=== PATIENT | male | born 1980 | race Caucasian/White ===

== ENCOUNTER 2017-02-28 11:37 | Emergency (ER) | payer MEDICAID, OTHER ==
[~2017-02-28] VITALS: Ht 167.6 cm; Wt 100.0 kg
[2017-02-28 11:39] VITALS: Ht 167.6 cm; Wt 100.0 kg
[2017-02-28] MEDS ORDERED: LIDOCAINE 1% (MDV) 20 ML INJ SC ONE (13:30)
[2017-02-28] MEDS ORDERED: HYDR-902 PO (14:53)
[2017-02-28] MEDS ORDERED: CEPH-443 PO (14:53)
--- NOTE | 2017-02-28 14:57 | ERD ---
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 Complaining of a three-week duration of swelling on top of the right kneecap. There is no erythema no trauma no fall no twisting injury. Is completely painless but has pain when he is on his knees at work. The pain is not radiating describes the pain as sharp ROS All systems reviewed and are negative except as per history of present illness. Medications Home Meds Active Scripts Cephalexin* (Keflex*) 500 Mg Capsule, 500 MG PO BID for 5 Days, CAP Prov:LEKKOS,APOSTOLOS A. DO 02/28/17 Hydrocodone/Acetaminophen ([place] 10-325 Tablet) 1 Each Tablet, 1 TAB PO Q6H Y for PAIN, #7 TAB Prov:LEAMANDAOSAPOSTOLOS A. DO 02/28/17 PMhx/Soc Medical and Surgical Hx: pt denies Medical Hx, pt denies Surgical Hx Hx Alcohol Use: No Hx Substance Use: No Hx Tobacco Use: No FmHx Family History: No coronary disease Physical Exam Vitals Vital Signs Date Time Temp Pulse Resp B/P Pulse Ox O2 Delivery O2 Flow Rate FiO2 02/28/17 11:39 98.4 94 19 147/96 100 Physical Exam Const: Well-developed, well-nourished Head: Atraumatic, normocephalic Eyes: Normal Conjunctiva, PERRLA, EOMI, normal sclera, no nystagmus ENT: Normal External Ears, Nose and Mouth, moist mucus membranes. Neck: Full range of motion. No meningismus, no lymphadenopathy. Resp: Clear to auscultation bilaterally, no wheezing, rhonchi, rales Cardio: Regular rate and rhythm, no murmurs, S1 S2 present Abd: Soft, non tender x 4, non distended. Normal bowel sounds, no guarding or rebound, no pulsitile abdominal masses or bruits Skin: No petechiae or rashes, no ecchymosis , no maculopapular rash Back: No midline or flank tenderness Ext: No cyanosis, or edema, FROM x 4, normal inspection, there is swelling on the right kneecap consistent with prepatellar bursitis no erythema neurovascularly intact x 4 Neur: Awake and alert, STR 5/5 x 4, sensation intact x 4, no focal findings, cerebellum intact Psych: Normal Mood and Affect Results 24 hrs Current Medications Medications (Trade) Dose Ordered Sig/Reza Route PRN Reason Start Time Stop Time Status Last Admin Dose Admin Lidocaine (Xylocaine 1% (Mdv) 20 ml) 20 ml ONCE ONCE SC 02/28/17 13:30 02/28/17 13:31 DC Procedures/MDM Procedure by me: Right knee patellar bursitis drainage: The skin was prepped with Betadine and aseptic technique. The skin was anesthetized with 1% lidocaine using 1 cc An 18-gauge needle was advanced into the prepatellar bursitis region and approximately 7 cc of serous fluid was obtained with resolution of the swelling Patient tolerated the procedure well Departure Diagnosis: Primary Impression: Prepatellar bursitis of right knee Condition: Stable Patient Instructions: MAURO Salguero DO Feb 28, 2017 14:57
== END 2017-02-28 15:15 | disposition home or self-care (01) ==
LOC: FTE 11:37
DX: M70.41 Prepatellar bursitis, right knee (principal); Y93.89 Activity, other specified
CPT/HCPCS: 20610; Z7502; Z7610